=== PATIENT | female | born 1980 | race American Indian/Alaskan Native ===

== ENCOUNTER 2018-07-31 16:43 | Emergency (ER) | payer SELFPAY ==
[2018-07-31 16:55] VITALS: BP 130/82
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
[2018-07-31] MEDS ORDERED: TORADOL IM ONE (19:55)
--- NOTE | 2018-07-31 21:16 | XRay Report ---
FINAL REPORT EXAM: XR KNEE 1-2V RT HISTORY: right knee pain TECHNIQUE: AP, tunnel, sunrise, oblique, and lateral views of the right knee PRIORS: None. FINDINGS: No acute fracture or dislocation is seen. The soft tissues demonstrated moderate suprapatellar joint effusion. Joint spaces are maintained and bony mineralization is normal. IMPRESSION: No acute bony abnormality of the right knee. Joint effusion.
== END 2018-07-31 21:17 | disposition home or self-care (01) ==
LOC: ED 16:43
DX: S86.911A Strain of unspecified muscle(s) and tendon(s) at lower leg level, right leg, initial encounter (principal); G43.001 Migraine without aura, not intractable, with status migrainosus; Z98.51 Tubal ligation status; V89.2XXA Person injured in unspecified motor-vehicle accident, traffic, initial encounter; Y93.89 Activity, other specified; Y99.8 Other external cause status; Y92.410 Unspecified street and highway as the place of occurrence of the external cause
CPT/HCPCS: 73560; 96372; 99283; J1885

== ENCOUNTER 2018-11-10 07:46 | Emergency (ER) | payer OTHER ==
[2018-11-10 07:58] VITALS: BP 106/69
--- NOTE | 2018-11-10 08:13 | Emergency Department Report ---
Minor Respiratory - HPI Chief Complaint: Upper Respiratory Infection Stated Complaint: BODY ACHE FLU SYMPTOMS Time Seen by Provider: 11/10/18 08:00 Duration: 2 Days Pain Location: Facial, Throat Severity: mild Minor Respiratory: Yes Rhinorrhea, Yes Sore Throat, Yes Able to Tolerate Fluids, No Ear Pain, No Cough, No Sick Contacts, No Hemoptysis, No Chest Pain, No Shortn ess of Breath, No Fever Other History: 38 yo AA female with cold like symptoms for 2 days. no fever. no purulent sputum. ED Review of Systems ROS: Stated complaint: BODY ACHE FLU SYMPTOMS Other details as noted in HPI Comment: All other systems reviewed and negative Constitutional: see HPI. denies: chills, fever Eyes: as per HPI. denies: eye pain ENT: as per HPI, throat pain. denies: ear pain Respiratory: see HPI. denies: cough Cardiovascular: denies: palpitations ED Past Medical Hx - Past Medical History Previous Medical History?: Yes Hx Asthma: Yes - Surgical History Past Surgical History?: Yes Additional Surgical History: tubal ligation. ablation - Social History Smoking Status: Never Smoker Substance Use Type: None - Medications Home Medications: Home Medications Medication Instructions Recorded Confirmed Last Taken Type Albuterol Sulfate [Ventolin HFA] 2 puff IH Q4H PRN #1 [id number] 11/10/18 Unknown Rx Amoxicillin [Trimox CAP] 500 mg PO BID #20 capsule 11/10/18 Unknown Rx Fluticasone [Flonase] 1 spray NS QDAY #1 bottle 11/10/18 Unknown Rx predniSONE [Deltasone] 20 mg PO DAILY #5 tablet 11/10/18 Unknown Rx Minor Respiratory Exam - Exam General: Vital signs noted. No distress. Alert and acting appropriately. HEENT: Yes Pharyngeal Erythema, Yes Moist Mucous Membranes, Yes Rhinorrhea, Yes Frontal Tenderness, Yes Maxillary Tenderness, No Pharyngeal Exudates, No Conjuctival Injection Ear: Neither TM Bulge, Neither TM Erythema, Neither EAC Pain, Neither EAC Discharge Neck: Yes Supple, No Adenopathy Lungs: Yes Good Air Exchange, No Wheezes, No Ronchi, No Stridor, No Cough, No Labored Respirations, No Retractions, No Use of Accessory Muscles, No Other Abnormal Lung Sounds Heart: Yes Regular, No Murmur Abdomen: Yes Normal Bowel Sounds, No Tenderness, No Peritoneal Signs Skin: No Rash, No Edema Neurologic: Alert and oriented, no deficits. Musculoskeletal: Unremarkable. ED Course Vital Signs 11/10/18 07:56 Temperature 97.6 F Pulse Rate 68 Respiratory 16 Rate Blood Pressure 106/69 O2 Sat by Pulse 100 Oximetry ED Medical Decision Making - Medical Decision Making asthma hx no wheezing urti likely viral will tx conservative pt instructed use anbx in 48 hours if no better - Differential Diagnosis asthma; w or wo urti Critical care attestation.: If time is entered above; I have spent that time in minutes in the direct care of this critically ill patient, excluding procedure time. ED Disposition Clinical Impression: Acute asthma exacerbation, Viral illness Disposition: DC-01 TO HOME OR SELFCARE Is pt being admited?: No Does the pt Need Aspirin: No Condition: Stable Instructions: Asthma (ED) Referrals: BELKIS GANDARA MD [Staff Physician] - 3-5 Days Time of Disposition: 08:11
== END 2018-11-10 08:27 | disposition home or self-care (01) ==
LOC: ED 07:46
DX: B34.9 Viral infection, unspecified (principal); J45.901 Unspecified asthma with (acute) exacerbation; Z98.51 Tubal ligation status; Z91.048 Other nonmedicinal substance allergy status; Z91.013 Allergy to seafood
CPT/HCPCS: 99282